=== PATIENT | female | born 1965 | race Caucasian/White ===

== ENCOUNTER 2021-12-24 04:49 | Emergency (ER) | payer SELFPAY ==
[~2021-12-24] VITALS: Ht 172.7 cm; Wt 113.4 kg
[2021-12-24] MEDS ORDERED: ONDANSETRON ODT8 MG PO (05:54)
[2021-12-24] MEDS ORDERED: TRANSDERM-SCOP1 EACH TD (05:54)
[2021-12-24] MEDS ORDERED: ANTIVERT25 M1 PO (05:54)
== END 2021-12-24 06:44 | disposition home or self-care (01) ==
LOC: ED 04:49
DX: R42 Dizziness and giddiness (principal); Z88.0 Allergy status to penicillin
CPT/HCPCS: 36415; 80053; 85025; 96374; 96376; 99284-25; A9270; J2405

== ENCOUNTER 2021-12-30 18:50 | Emergency (ER) | payer SELFPAY ==
[~2021-12-30] VITALS: Ht 172.7 cm; Wt 86.2 kg
[~2021-12-30 18:50] MED LIST: ANTIVERT25 M1 PO; ONDANSETRON ODT8 MG PO; TRANSDERM-SCOP1 EACH TD
--- OUTSIDE RECORDS SUMMARY | 2021-12-30 18:58 | XMS ---
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 [place] has no Care Guidelines for this patient. [place] VISIT COUNT (12 MO.) 2 [facility] TOTAL 2 NOTE: Visits indicate total known visits. ED/C VISIT TRACKING (12 MO.) 12/30/2021 18:52 [facility] [place] TYPE: Emergency COMPLAINT: - HEADACHE AND DIZZY 12/24/2021 04:51 [facility] [place] TYPE: Emergency COMPLAINT: - DIZZY DIAGNOSES: - Dizziness and giddiness - Allergy status to penicillin INPATIENT VISIT TRACKING (12 MO.) No inpatient visits to display in this time frame [email or web address]
[2021-12-30] MEDS ORDERED: ONDANSETRON ODT8 MG PO (20:57)
[2021-12-30] MEDS ORDERED: PROMETHAZINE HC25 M1 PO (20:57)
== END 2021-12-30 21:15 | disposition home or self-care (01) ==
LOC: ED 18:50
DX: R42 Dizziness and giddiness (principal); Z88.0 Allergy status to penicillin
CPT/HCPCS: 36415; 70450; 80053; 81001; 85025; 96361; 96374; 99284-25; A9270; J2405; J7030